=== PATIENT | male | born 1985 | race Caucasian/White ===

== ENCOUNTER 2024-04-27 17:44 | Emergency (ER) | payer OTHER, SELFPAY ==
[2024-04-27 17:48] VITALS: BP 147/100
--- NOTE | 2024-04-27 18:34 | ED.GENMED ---
History of Present Illness
General
Chief Complaint: Visual Problem
Time Seen by Provider: 04/27/24 18:34
History of Present Illness
History of Present Illness:
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 No nausea or photophobia. Was associated w/ seeing 'wavy lines' and vision loss on right periphery. Vision changes have since resolved. He currently appears
comfortable in no distress.
EXAM:
GENERAL: Well appearing in no distress
HEENT: Moist oral mucosa
CARDIOVASCULAR: No murmurs, normal heart rate, regular rhythm, No chest wall tenderness
PULMONARY: No respiratory distress, breath sounds are clear and equal
ABDOMEN: Soft with no peritoneal signs, no tenderness
NEUROLOGIC: Excellent strength all extremities, no coordination deficits, normal finger-nose testing, no sensory deficits, no dysarthria, no field cuts, visual acuity 20/20 in each eye
PSYCHIATRIC: Appropriate mental status, normal insight and judgement
EXTREMITIES: Nontender, no edema, moves all extremities equally
SKIN: No rash, no lesions
TIME OF INITIAL ENCOUNTER: 6:30 PM
NUMBER AND COMPLEXITY OF PROBLEMS ADDRESSED AT THE ENCOUNTER
� Chronic conditions affecting care: Denies any significant past medical history
� Acute Exacerbation and/or Progression of Chronic Illness: This is an acute problem
� Differential Diagnosis includes: TIA, complex migraine, ophthalmic migraine
AMOUNT AND/OR COMPLEXITY OF DATA TO BE REVIEWED AND ANALYZED
� I performed an independent evaluation of and my interpretation is:
EKG: Sinus 92, nonspecific ST abnormality, no old to compare
CT: CT brain normal
X-rays:
Laboratory Studies: CBC, sed rate, chemistries unremarkable
Other:
� Review of other/old records: No old records available for review in [facility]
� Clinical information was obtained by an independent historian: None needed
� Prescriptions/Medications Considered but not given:
� Further testing considered but not performed:
RISK OF COMPLICATIONS AND/OR MORBIDITY OR MORTALITY OF PATIENT MANAGEMENT
� Social determinants of health affecting care: Lives at home, is a accounts receivable coordinator
� Discussion with other providers: I discussed case with Dr. Aden who recommends trying Maxalt and feels patient does not need CTA
� Escalation of care including admission/observation vs risk of discharge considered: Currently patient appears very comfortable but does agree with trying the dose of Maxalt. His NIHSS equals 0 and GCS equals 15. I reassessed
patient at 8:30 PM, ongoing headache but appears very comfortable. He was given Maxalt earlier.
Phy Exam
Physical Exam
Physical Exam:
See HPI
Course
Orders/Labs/Results
Orders:
Orders
04/27/24 18:00
Electrocardiogram (*1) Urgent
Reason for Study: Other
Other Reason for Exam: headache/migraine
04/27/24 18:01
EKG- Treatment ONCE
04/27/24 18:45
CT Head W/o Iv Contrast Urgent
Comment:
Reason For Exam: resolved R vis field loss; FIELDS
04/27/24 18:48
Basic Metabolic Panel Urgent
Complete Blood Count/With Diff Urgent
ESR [Erythrocyte Sed Rate] Urgent
04/27/24 18:50
Rizatriptan Orally Disintegrat [Maxalt [employer] In[employer] Physician (Orally Disintegrating)] 10 mg PO ONCE ONE
Abnormal Lab Results
04/27/24
18:48
RBC 4.55 L 10^6/uL
(4.70-6.10)
Hct 38.9 L %
(39.0-52.0)
Glucose 105 H mg/dl
(70-99)
04/27/24 18:48
04/27/24 18:48
Vital Signs
Initial and Last Documented VS:
Initial Vital Signs
Temp Pulse Resp BP Pulse Ox
98.2 F 95 16 147/100 98
04/27/24 17:48 04/27/24 17:48 04/27/24 17:48 04/27/24 17:48 04/27/24 17:48
Last Documented Vital Signs
Temp Pulse Resp BP Pulse Ox
98.2 F 95 16 147/100 98
04/27/24 17:48 04/27/24 17:48 04/27/24 17:48 04/27/24 17:48 04/27/24 17:48
*Critical Care Note
Total Time (30-74mins, 75-104mins- exclusive of procedures): Not Applicable
ED Attending Note
-
Portions of this chart may have been created with voice recognition software.� Occasional wrong word or��sound alike� substitutions may have occurred due to the inherent limitations of voice recognition software.
Discharge Plan
Departure
Patient Disposition: Home (Routine Discharge)
Date of Disposition: 04/27/24
Time of Disposition: 20:27
Patient with high blood pressure during this ER visit?: Yes
Discharge Problem:
Headache
Referrals:
Marcos Aden MD [Active] - Follow up in 1 week
UNKNOWN - PT DOES,NOT KNOW [Family Provider] -
Activity Restrictions/Additional Instructions:
CAT scan of the brain was normal, CBC, sed rate, and chemistries were all normal. I recommend that you follow-up your primary care doctor but I also gave the contact information for local neurologist as well.
Interventions
Interventions:
ED- Neurological Assessment Last Done: 04/27/24 18:51
ED-EENT Assessment Last Done: 04/27/24 18:51
Discharge Date and Time
Print Language: ESTONIAN
[2024-04-27 18:54] LABS: % Basophils 0.4 % (0-2); % Eosinophils 2.1 % (0-6); % Immature Granulocytes 0.2 % (0-0.5); % Lymphocytes 36.1 % (20.5-51.1); % Monocytes 5.8 % (1.7-9.3); % Neutrophils 55.4 % (42.2-75.2); Absolute Eosinophils 0.2 10^3/uL (0-0.7); Absolute Lymphocytes 3.1 10^3/uL (1.2-3.4); Absolute Monocytes 0.5 10^3/uL (0.1-0.6); Absolute Neutrophils 4.7 10^3/uL (1.4-6.5); Hematocrit 38.9 % (39.0-52.0); Hemoglobin 14.1 g/dL (13.0-18.0); Mean Corp Hgb Conc. 36.2 g/dL (33.0-37.0); Mean Corpuscular Volume 85.5 fL (80.0-94.0); Nucleated Red Blood Cells % 0 % (-); Platelet Count 213 10^3/uL (130-400); Red Blood Cell Count 4.55 10^6/uL (4.70-6.10); Red Cell Dist. Width 12.6 % (11.5-14.5); White Blood Cell Count 8.6 10^3/uL (4.8-10.8)
[2024-04-27] MEDS: MAXALT MLT (ORALLY DISINTEGRATING) 10 MG PO (18:59)
[2024-04-27 19:09] LABS: Blood Urea Nitrogen 16 mg/dl (9-20); Calcium 9.3 mg/dl (8.4-10.2); Carbon Dioxide 23 mmol/L (22-30); Chloride 102 mmol/L (98-107); Glucose 105 mg/dl (70-99); Potassium 3.9 mmol/L (3.5-5.1); Sodium 137 mmol/L (135-145); eGFR > 60.00
[2024-04-27 19:26] LABS: Erythrocyte Sed Rate 6 mm/hour (0-20)
[2024-04-27 20:39] VITALS: BP 145/86
== END 2024-04-27 20:40 | disposition home or self-care (01) ==
LOC: EMR 17:44
PROVIDERS: EMERGENCY PHYSICIAN Emergency Medicine
DX: R51.9 Headache, unspecified (principal)
CPT/HCPCS: 99285; 70450; 80048; 85025; 85652; 93005